=== PATIENT | male | born 1990 | race Two or more races ===

== ENCOUNTER 2024-07-12 16:43 | Emergency (ER) | payer MEDICAID, SELFPAY ==
[2024-07-12 16:44] VITALS: BMI 32.1
--- NOTE | 2024-07-12 16:50 | PC.NURSE ---
PT was getting vitals done and decided he wanted to leave because he felt fine. Pt stated he would come back if he felt sick.
== END 2024-07-12 16:57 | disposition left against medical advice (07) ==
LOC: SERX 17:01
PROVIDERS: Emergency Provider Emergency Medicine
DX: Z53.21 Procedure and treatment not carried out due to patient leaving prior to being seen by health care provider (principal)

== ENCOUNTER 2024-09-02 13:48 | Emergency (ER) | payer OTHER, MEDICAID, SELFPAY ==
--- NOTE | 2024-09-02 13:53 | EKG_ITS ---
[facility] Test Date: 2024-09-02 Pat Name: MARINA SINGER Department: Room: - Gender: Male Third Cook: : 1990 Requested By: ED Temporary Provider Order Number: [id number] Reading MD: ED Temporary Provider Measurements Intervals [place] Rate: 113 P: 44 IN: 143 QRS: 2 QRSD: 90 T: 46 QT: 316 QTc: 434 Interpretive Statements SINUS TACHYCARDIA ABNORMAL RHYTHM ECG No previous ECG available for comparison /store/S0/[id number].pdf
[2024-09-02 13:55] VITALS: BMI 30.2
--- NOTE | 2024-09-02 13:55 | PC.NURSE ---
PT BROUGHT FROM RETIREMENT BY AMBULANCE, IN WRIST AND ANKLE SHACKLES, WITH C/O CHEST PAIN ON AND OFF SINCE YESTERDAY
[2024-09-02 14:12] VITALS: BP 129/93; PULSE 113; RESP 18; TEMP 36.7; O2SAT 98
--- NOTE | 2024-09-02 14:13 | EDNOTE_ITS ---
ED Medical Clearance RME/HPI General Chief complaint: Chest Pain Stated complaint: CHEST PAIN SINCE YESTERDAY Time Seen by Provider: 09/02/24 14:09 Arrival date/time: 09/02/24 13:48 RME / HPI RME / HPI Narrative: DR. GARCIA MAIN ED EVALUATION: 34 y/o male ZARINA VOSS from correction presents to ED c/o chest pain x 2 days. Reports father's history of UT and is scared that he may also be experiencing a heart attack. Patient states that he was seen here and was put on a blood thinner approximately 2 months ago, but has not taken the medication in 3 days as he has been in correction. No other concerns or complaints expressed at this time. Related Information Previous Rx's ?Medication ?Instructions ?Recorded cyclobenzaprine 7.5 mg tablet 7.5 mg PO BID PRN muscle spasm #14 11/28/19 tabs naproxen 500 mg tablet 500 mg PO BID PRN pain #30 t abs 11/28/19 metronidazole 500 mg tablet 2,000 mg (4 x 500 mg) PO . once #4 07/06/21 tabs Allergies Allergy/AdvReac Type Severity Reaction Status Date / Time No Known Allergies Allergy Verified 09/02/24 14:14 Review of Systems Review of Systems Systems Reviewed: All systems reviewed, normal except as documented Narrative Review of Systems: Gen: No fever, no chills, no weight loss EYES: No discharge, no visual changes, no pain HEENT: No ear pain, no congestion, no sore throat PULM: No shortness of breath, no cough, no congestion CV: Positive chest pain, no dyspnea on exertion, no palpitations GI: No nausea, no vomiting, no diarrhea, no pain, no constipation : No frequency, no urgency, no dysuria Musc/skel: No joint pain, no back pain Skin: No rash Psyc: No hallucinations, no depression Heme/Lymph: No easy bleeding or bruising tendencies Neuro: No weakness, no headache Past Medical History Social History SMOKING STATUS: Current every day smoker SUBSTANCE USE: methamphetamine ED Exam Narrative Physical exam: GENERAL APPEARANCE: AxOx4, generally well-appearing, no acute distress. HEENT: NC, AT. MMM. EOMI, clear conjunctiva, oropharynx clear. NECK: Supple without lymphadenopathy. No stiffness or restricted ROM. HEART: Normal rate and regular rhythm, normal S1/S1, no m/r/g LUNGS: CTAB, moving air well. No crackles or wheezes are heard. ABDOMEN: Soft, nontender, nondistended with good bowel sounds heard. BACK: No midline C/T/L spine pain or deformity, No CVAT, no obvious deformity. EXTREMITIES: Without cyanosis, clubbing or edema. MUSCULOSKELETAL: FROM of all major joints, no chest tenderness NEUROLOGICAL: Patient appears anxious, teary-eyed, and crying. Grossly nonfocal. Alert and oriented, moving all 4 extremities. CN not formally tested but appear grossly intact. Observed to ambulate with normal gait. Skin: Warm and dry without any rash. Course Course Course Narrative: CXR is ordered for determining the etiology of atypical chest pain. Quality Measures none Orders Category Date Time Status EKG (ED ONLY) *Do not use* NOW Care 09/02/24 13:53 Completed EKG (ED Only) Stat Exams 09/02/24 13:53 Draft XR chest 1V Stat Exams 09/02/24 14:33 Taken Troponin I Stat Lab 09/02/24 15:03 Completed Acetaminophen Tab [Tylenol Tab] Med 09/02/24 16:07 Discontinued 650 mg PO X1 ONE DiphenhydrAMINE [Benadryl] Med 09/02/24 14:34 Discontinued 50 mg PO X1 ONE Ibuprofen Tab [Motrin Tab] Med 09/02/24 16:07 Discontinued 600 mg PO X1 ONE Vital Signs Vital signs: Vital Signs Temperature 98.1 F 09/02/24 14:12 Pulse Rate 113 H 09/02/24 14:12 Respiratory Rate 18 09/02/24 14:12 Blood Pressure 129/93 H 09/02/24 14:12 Pulse Oximetry (%) 98 09/02/24 14:12 Procedures -ED EKG Interpretation #1: Date of EK09/02/24 Time of EK:54 Rate: 113 Interpretation: Interpreted by me Additional EKG comment: Sinus tachycardia, HR 113, normal axis, normal interval, no acute ST or T-wave changes, no STEMI. Medical Clearance MDM Narrative MDM Narrative:: Scribe Attestation: Melinda Hamilton am scribing for and in the presence of Dr. Garcia. Provider Notation: Although this document has been carefully reviewed, there may still be some phonetic and other typographical errors.? These errors are purely grammatical due to imperfections in the software program and should not be construed in any way to? compromise the substance of the patient's medical care during this visit. Upon review of records, patient shows up in the system as leaving AMA with no provider contact or interaction. No testing was done, no CTA showing he has a blood clot. Patient data External records reviewed:: [facility] previous records (Reviewed prior ED records from 07/06/21. Patient was seen for Trichomonas exposure.), EMS form and Other (specify) ([facility]) Clinical information provided by:: patient, EMS and law enforcement ([facility]) Social determinants that could affect healthcare access:: substance use (Methamphetamine) Patient has the following chronic illnesses:: Methamphetamine abuse How is presenting disease/condition affected by chronic disease/condition?: exacerbated by Evaluation data The following diagnostics were reviewed and interpreted by me:: lab results, radiology exam(s) and EKG tracing(s) (see interpretation under the procedures tab) Lab and/or radiology exams considered but not ordered:: None Interpretation Summary: RADIOLOGY Chest X-Ray I personally reviewed and interpreted a chest xray on this patient that was ordered for determining etiology of atypical chest pain. Films were reviewed. I agree with the radiologist's interpretation. Chest x-ray, 2V, indication: chest pain, per my interpretation: negative for cardiomegaly, bony abnormalities, cardiopulmonary edema, overall impression: no acute process. Patient: MARINA SINGER. Record#: [id number] Birthdate: 1990 Age/Sex: 34 / M Location: [facility] Attending Dr: Ordering Physician: Layo aGrcia MD Date of Service: 09/02/24 Procedure(s): XR chest 1V Accession Number(s): [id number] cc: Layo Garcia MD; Cain([facility])Sasha MD; Yonny Vo MD~ Examination: AP chest single view Technique one AP portable semiupright chest single view Date and time: September 02, 2024 1532 hrs. Comparison November 28, 2019 Indications: Sharp left-sided chest pain beginning 2 days ago. Findings: Minor prominence left ventricle Mild vascular congestion. No lobar pneumonia or pulmonary edema. Intact osseous structures Impression: Mild vascular congestion. No pneumothorax, no pneumonia or pulmonary edema Dictated By: Yonny Vo MD Signed By: <Electronically signed by Yonny Vo MD in OV> 09/02/24 1618 Medications / Prescriptions Medications or Prescriptions considered but not ordered:: None Medication administrations:: Medication Administration History Discontinued Medications Acetaminophen (Acetaminophen 325 Mg Tablet) 650 mg PO X1 ONE Stop: 09/02/24 16:08 Diphenhydramine HCl (Diphenhydramine 25 Mg Capsule) 50 mg PO X1 ONE Stop: 09/02/24 14:35 Last Admin: 09/02/24 14:40 Dose: 50 mg Documented By: [facility] Ibuprofen (Ibuprofen Tab 600 Mg Tablet) 600 mg PO X1 ONE Stop: 09/02/24 16:08 See above if any Consultations Consultation(s) initiated? (list below): No Diagnosis Medical Clearance Differential Diagnosis: other (Chest pain, Costochondritis, Anxiety disorder, Panic disorder, UT) Most likely diagnosis given after review of the tests above:: Chest pain Admission Indicated Admission indicated?: not indicated Explain why admission is indicated or not indicated:: Patient has no emergent abnormalities in their studies and can be managed on an outpatient basis. Admission Request Was there a request for admission?: No Disposition Plan Disposition Plan: Discharge Discharge Attestation Discharge Attestation: The patient and all family members were given an opportunity to ask questions and understood the discharge instructions. Discharge instructions specifically effects, indications for sooner follow up or return to the emergency department, and the expected course of current diagnosis. Patient condition: Stable Discharge Plan Plan Patient Disposition: Retirement/Court/Law Prescriptions/Referrals Prescriptions/Med Rec: No Action cyclobenzaprine 7.5 mg tablet 7.5 mg PO BID PRN (Reason: muscle spasm) Qty: 14 0RF naproxen 500 mg tablet 500 mg PO BID PRN (Reason: pain) Qty: 30 0RF metronidazole 500 mg tablet 2,000 mg PO .once Qty: 4 0RF Referrals: Cain([facility])Sasha MD [Primary Care Provider] - In 1 week Problem List Clinical Impression: Chest pain Patient/Caregiver Discharge Instructions Education Materials: ED Chest Pain, Uncertain Cause Additional Instructions: Follow-up with your primary care doctor next available. You can follow-up with your primary care doctor and or [facility] health if you feel the need for alcohol and or drug rehabilitation support. Print Language: Ukrainian
--- NOTE | 2024-09-02 14:33 | XR_ITS ---
Examination: AP chest single view Technique one AP portable semiupright chest single view Date and time: September 02, 2024 1532 hrs. Comparison November 28, 2019 Indications: Sharp left-sided chest pain beginning 2 days ago. Findings: Minor prominence left ventricle Mild vascular congestion. No lobar pneumonia or pulmonary edema. Intact osseous structures Impression: Mild vascular congestion. No pneumothorax, no pneumonia or pulmonary edema
[2024-09-02] MEDS: DiphenhydrAMINE 25 MG CAPSULE 50 MG PO (14:40)
[2024-09-02 15:48] LABS: Troponin I < 0.002 ng/mL (0.0-0.045)
[2024-09-02 16:27] VITALS: BP 142/88; PULSE 91; RESP 19; TEMP 36.8; O2SAT 97
== END 2024-09-02 16:36 ==
PROVIDERS: Emergency Provider Emergency Medicine; PCP Internal Medicine
DX: Z02.89 Encounter for other administrative examinations (principal); R07.9 Chest pain, unspecified
CPT/HCPCS: 36415; 71045; 84484; 93005; 99283; A9270

== ENCOUNTER 2025-01-11 22:56 | Emergency (ER) | payer MEDICAID, SELFPAY ==
[2025-01-11 22:57] VITALS: BMI 28.8
[2025-01-11 23:15] VITALS: BP 132/91; PULSE 95; RESP 16; TEMP 37.5; O2SAT 98
[2025-01-11] MEDS: DIPHTH,PERTUSS(ACELL),TET VAC 0.5 ML SYR- ADULT IMi (23:39)
--- NOTE | 2025-01-12 00:03 | PD.EDWOUND ---
ED Wound/Laceration-RME/HPI General Chief Complaint: Wound/Laceration Stated Complaint: FALL, LACERATION TO LEFT EYEBROW Time Seen by Provider: 01/11/25 23:19 Arrival date/time: 01/11/25 22:56 34M with history of psych/drug use presents to ED with facial labs after falling. Patient has not had a tetanus shot in the past 5 years. Patient denies LOC. Limitations: no limitations Related Data Previous Rx's ?Medication ?Instructions ?Recorded cyclobenzaprine 7.5 mg tablet 7.5 mg PO BID PRN muscle spasm #14 11/28/19 tabs naproxen 500 mg tablet 500 mg PO BID PRN pain #30 tabs 11/28/19 metronidazole 500 mg tablet 2,000 mg (4 x 500 mg) PO .once #4 07/06/21 tabs Allergies Allergy/AdvReac Type Severity Reaction Status Date / Time No Known Allergies Allergy Verified 01/11/25 22:57 Review of Systems Review of Systems Systems Reviewed: All systems reviewed, normal except as documented Integumentary/Breasts Skin/Breast: Reports as per HPI and Reports skin pain Past Medical History Past Medical History NEUROLOGIC: Negative Seizures CARDIAC: Negative Cardiac Disorders or Congestive Heart Failure RESPIRATORY: Negative Chronic Obstructive Pulmonary Disease (COPD) or Asthma GENITOURINARY: Negative Renal Disease ENDOCRINE: Negative Diabetes Mellitus Type 1 or Diabetes Mellitus Type 2 HEMATOLOGIC: Negative Sickle Cell Disease OTHER HISTORY: Negative Blood Transfusions, Blood Transfusion Reaction or Anesthesia Reactions Social History SMOKING STATUS: Current every day smoker SUBSTANCE USE: methamphetamine ED Exam General Limitations: Present no limitations General appearance: Present alert and in no apparent distress Expanded Head Exam Head exam physical: Present laceration (2 cm L eyebrow and 0.5 cm L upper lip) Eye Eye exam: Present normal appearance, PERRL and EOMI Chest Chest inspection: Present normal inspection and symmetric chest wall rise Respiratory Respiratory exam: Present normal lung sounds bilaterally Extremities Exam Extremities exam: Present normal inspection and full ROM Neurological Exam Neurological exam: Present alert, oriented X3 and CN II-XII intact Psychiatric Psychiatric exam: Present normal affect and normal mood Skin Skin exam: Present warm, dry, intact and normal color Course Quality Measures none Orders Category Date Time Status Wound Care NOW Care 01/11/25 23:19 Active TET,DIP/PERT AC (Adult)-Tdap [Boostrix Adult (Tdap) Med 01/11/25 23:19 Discontinued Vacc] 0.5 ml IMI .ONCE ONE Vital Signs Vital signs: Vital Signs Temperature 99.5 F 01/11/25 23:15 Pulse Rate 95 01/11/25 23:15 Respiratory Rate 16 01/11/25 23:15 Blood Pressure 132/91 H 01/11/25 23:15 Pulse Oximetry (%) 98 01/11/25 23:15 Oxygen Delivery Method Room Air 01/11/25 23:15 O2 at 98% on RA and WNLs Wound / Laceration MDM Narrative MDM Narrative:: 34M with history of psych/drug use presents to ED with facial labs after falling. Patient has not had a tetanus shot in the past 5 years. Patient denies LOC. Physical exam reveals normal EOM. 2 cm lac on L eyebrow and 0.5 cm lac on L side of upper lip. Speech normal. Gait normal. Patient is afebrile, calm, and alert. Patient does not want jaja or stitches. Wounds cleaned and closed with combo of glue and steri-strips. Tdap given. Patient data External records reviewed:: [facility] previous records Clinical information provided by:: patient Social determinants that could affect healthcare access:: substance use Patient has the following chronic illnesses:: psych/drug How is presenting disease/condition affected by chronic disease/condition?: exacerbated by Evaluation data The following diagnostics were reviewed and interpreted by me:: other (specify) (none) Lab and/or radiology exams considered but not ordered:: not ordered Interpretation Summary: n/a Medications / Prescriptions Medications or Prescriptions considered but not ordered:: ordered Medication administrations:: Medication Administration History Discontinued Medications Diphtheria/Tetanus/Acell Pertussis (Diphth,Pertuss(Acell),Tet Vac 0.5 Ml Syr- Adult) 0.5 ml IMi .ONCE ONE Stop: 01/11/25 23:20 Last Admin: 01/11/25 23:39 Dose: 0.5 ml Documented By: AC above Consultations Consultation(s) initiated? (list below): No Diagnosis Wound Differential Diagnosis: laceration, abrasion, avulsion of skin and other (CHI) Most likely diagnosis given after review of the tests above:: laceration and CHI Admission Indicated Admission indicated?: not indicated Admission Request Was there a request for admission?: No Disposition Plan Disposition Plan: Discharge Discharge Attestation Discharge Attestation: The patient and all family members were given an opportunity to ask questions and understood the discharge instructions. Discharge instructions specifically effects, indications for sooner follow up or return to the emergency department, and the expected course of current diagnosis. Patient condition: Stable Discharge Plan Plan Patient Disposition: HOME (Self Care) Discharge Disposition comment: Stable Prescriptions/Referrals Prescriptions/Med Rec: No Action cyclobenzaprine 7.5 mg tablet 7.5 mg PO BID PRN (Reason: muscle spasm) Qty: 14 0RF naproxen 500 mg tablet 500 mg PO BID PRN (Reason: pain) Qty: 30 0RF metronidazole 500 mg tablet 2,000 mg PO .once Qty: 4 0RF Problem List Clinical Impression: Laceration, CHI (closed head injury) Patient/Caregiver Discharge Instructions Education Materials: ED Head Injury (Adult), ED Laceration, Face: Skin Glue Additional Instructions: Please follow-up with PCP within 24-48 hours and return immediately if symptoms worsen. For the next 24-48 hours, watch for unexplained nausea/vomiting, confusion, lethargy, not acting like himself, and seizures. Print Language: Haitian Stand Alone Forms: Patient Portal Info Letter HA/RJ Supervising Physician HA/RJ Supervising Physician: Dr. Borden
== END 2025-01-12 01:02 | disposition home or self-care (01) ==
PROVIDERS: Emergency Provider Emergency Medicine
DX: S01.112A Laceration without foreign body of left eyelid and periocular area, initial encounter (principal); W19.XXXA Unspecified fall, initial encounter; Z23 Encounter for immunization
CPT/HCPCS: 12011; 90471; 90715; 99284